=== PATIENT | male | born 1945 | race Caucasian/White ===

== ENCOUNTER → 2019-03-22 | Day surgery (SDC) | payer MEDICARE ==
[2019-03-20 14:58] LABS: BASOPHILS # (AUTO) 0.1 (0.0-0.1); BASOPHILS % 0.8 % (0.0-1.0); EOSINOPHILS # (AUTO) 0.1 (0.0-0.4); EOSINOPHILS % 0.8 % (0.0-6.0); HEMATOCRIT 42.7 % (38.2-49.6); HEMOGLOBIN 14.7 g/dL (14.0-18.0); LYMPHOCYTES % 32.9 % (18.0-39.1); MEAN CORPUSCULAR HEMOGLOBIN 30.5 pg (28-32); MEAN CORPUSCULAR HGB CONC 34.4 g/dL (31-35); MEAN CORPUSCULAR VOLUME 88.6 fL (81-99); MONOCYTES # (AUTO) 0.5 (0.2-0.8); MONOCYTES % 5.1 % (4.4-11.3); NEUTROPHILS # (AUTO) 5.4 (2.1-6.9); NEUTROPHILS % 60.1 % (38.7-80.0); PLATELET COUNT 263 x10e3/uL (140-360); RED BLOOD COUNT 4.82 x10e6/uL (4.3-5.7); RED CELL DISTRIBUTION WIDTH 13.3 % (11.7-14.4)
[~2019-03-22] MED LIST: ASPIR 8181 MG PO; FENTANYL CITRATE/PF 100MCG/2 ML INJ ONE; MIDAZOLAM HCL 2 MG/2 ML VIAL ONE; NEXIUM PO; PROPOFOL IV EMULSION 10 MG/ML 50 ML VIAL ONE; SIMVASTATIN20 MG PO; STOOL SOFTENER1 EAC2 PO; VIT D PO
--- OUTSIDE RECORDS SUMMARY | 2019-03-22 13:10 | XMS REPORT | Clinical Summary ---
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 Active polycarbophil (FIBERCON) Take 625 mg 0 625 mg tablet by mouth daily. Active esomeprazole (NexIUM) 40 TAKE ONE 90 capsule 2 MG capsuleIndications: CAPSULE BY 8 Gastroesophageal reflux MOUTH EVERY disease without DAY BEFORE esophagitis BREAKFAST Active acetaminophen (TYLENOL) Take 650 mg 0 325 MG tablet by mouth every 6 (six) hours as needed for fever. Active ondansetron (ZOFRAN) 4 MG Take 1 tablet 20 tablet 0 tablet (4 mg total) 8 by mouth every 8 (eight) hours as needed for nausea or vomiting. 06/06/2018 Discontinued traMADol (ULTRAM) 50 mg 0 tablet 7 06/06/2018 Discontinued cholecalciferol, vitamin Take by 0 D3, (VITAMIN D3) 5,000 mouth. unit tablet 06/06/2018 Discontinued folic acid (FOLVITE) 400 Take 400 mcg 0 MCG tablet by mouth daily. 06/07/2018 Discontinued aspirin (ECOTRIN) 81 MG Take 81 mg by 0 enteric coated tablet mouth daily. 06/06/2018 Discontinued acetaZOLAMIDE (DIAMOX) 0 500 mg capsule 7 06/06/2018 Discontinued moxifloxacin (VIGAMOX) 0 0.5 % ophthalmic solution 7 06/06/2018 Discontinued ILEVRO 0.3 % 0 drops,suspension 7 06/06/2018 Discontinued prednisoLONE acetate 0 (PRED FORTE) 1 % 7 ophthalmic suspension 06/06/2018 Discontinued esomeprazole (NexIUM) 40 TAKE ONE 90 capsule 2 MG capsuleIndications: CAPSULE BY 7 Gastroesophageal reflux MOUTH EVERY disease without DAY BEFORE esophagitis BREAKFAST 06/06/2018 Discontinued ciprofloxacin HCl INSTILL 1 0 (CILOXAN) 0.3 % DROP INTO 7 ophthalmic solution SURGERY EYE ONLY FOUR TIMES DAILY FOR 10 DAYS START 2 DAYS BEFORE SURGERY 06/06/2018 Discontinued keTOROlac (ACULAR) 0.5 % INSTILL 1 3 ophthalmic solution DROP INTO 7 SURGERY EYE ONLY THREE TIMES DAILY START 2 DAYS BEFORE SURGERY 06/06/2018 Discontinued esomeprazole (NexIUM) 40 TAKE ONE 30 capsule 0 MG capsuleIndications: CAPSULE BY 7 Gastroesophageal reflux MOUTH EVERY disease without DAY BEFORE esophagitis BREAKFAST 07/07/2018 traMADol (ULTRAM) 50 mg Take 1 tablet 21 tablet 0 tablet (50 mg total) 8 by mouth every 6 (six) hours as needed for moderate pain for up to 30 days. 06/19/2018 Discontinued tamsulosin (FLOMAX) 0.4 Take 1 30 capsule 0 mg capsule capsule (0.4 8 mg total) by mouth daily for 30 days. 06/14/2018 Discontinued oxybutynin (DITROPAN) 5 Take 1 tablet 21 tablet 0 MG tablet (5 mg total) 8 by mouth 3 (three) times a day as needed for bladder spasms for up to 30 days. 06/17/2018 ciprofloxacin (CIPRO) 500 Take 1 tablet 20 tablet 0 MG tablet (500 mg 8 total) by mouth 2 (two) times a day for 10 days. 06/19/2018 Discontinued oxybutynin (DITROPAN) 5 Take 1 tablet 21 tablet 0 MG tablet (5 mg total) 8 by mouth 3 (three) times a day as needed for bladder spasms for up to 30 days. 06/24/2018 traMADol (ULTRAM) 50 mg Take 1 tablet 20 tablet 0 tablet (50 mg total) 8 by mouth every 8 (eight) hours as needed for moderate pain for up to 5 days. 06/28/2018 Discontinued hyoscyamine (LEVSIN/SL) Take 1 tablet 20 tablet 0 0.125 mg SL tablet (0.125 mg 8 total) by mouth every 4 (four) hours as needed for cramping (bladder spasm) for up to 30 days. 06/22/2018 levoFLOXacin (LEVAQUIN) Take 1 tablet 3 tablet 0 500 MG tablet (500 mg 8 total) by mouth daily for 3 days. 06/26/2018 phenazopyridine Take 1 tablet 20 tablet 0 (PYRIDIUM) 100 MG tablet (100 mg 8 total) by mouth 3 (three) times a day as needed for bladder spasms (dysuria) for up to 7 days. 07/15/2018 sulfamethoxazole-trimetho Take 1 tablet 28 tablet 0 prim (BACTRIM DS) 800-160 by mouth 8 mg per tablet every 12 (twelve) hours for 14 days. 07/05/2018 ciprofloxacin (CIPRO) 500 Take 1 tablet 1 tablet 0 MG tablet (500 mg 8 total) by mouth once for 1 dose. Active Problems Problem Noted Date Pyelonephritis 06/28/2018 Hydronephrosis 06/07/2018 Kidney stone 06/06/2018 Urinary retention 06/06/2018 Nuclear sclerotic cataract of right eye 07/24/2017 Benign prostatic hyperplasia without lower urinary tract symptoms 04/07/2017 Kidney stones 04/07/2017 Grewal's esophagus 04/07/2017 Pure hypercholesterolemia 04/06/2017 Gastroesophageal reflux disease without esophagitis 04/06/2017 Encounters Care Team Description Date Type Specialty Ignacio Argueta MD Benign prostatic hyperplasia without lower urinary tract symptoms (Primary Dx); Urinary retention; Kidney stone 10/07/2018 Office Visit Urology Ignacio Argueta MD Kidney stone 10/01/2018 Hospital Radiology Encounter Ignacio Argueta MD Kidney stone (Primary Dx); Benign prostatic hyperplasia without lower urinary tract symptoms 07/08/2018 Procedure visit Urology Hortensia Gonzalez MA 07/05/2018 Orders Only Urology Jose Rafael Bowen DO 07/01/2018 Orders Only General Internal Medicine Ivan aRmirez, Jose Rafael Bobby DO Pyelonephritis (Primary Dx); Sepsis, due to unspecified organism (HCC) 06/28/2018 [facility] General Internal Medicine - Encounter 07/01/2018 Hortensia Gonzalez MA 06/28/2018 Telephone Urology Hortensia Gonzalez MA BPH with obstruction/lower urinary tract symptoms (Primary Dx); Urinary retention 06/26/2018 Nurse Only Urology Rios Ortiz MD 06/19/2018 Anesthesia General Surgery Event Ignacio Argueta MD Cysto With Ureteroscopy LASER LITHOTRIPSY-RIGHT 06/19/2018 Surgery General Surgery Ignacio Argueta MD Right ureteral stone; Benign prostatic hyperplasia with lower urinary tract symptoms, symptom details unspecified 06/19/2018 Hospital General Surgery Encounter Ignacio Argueta MD Preoperative testing (Primary Dx) 06/17/2018 Pre-Admit Pre-Admission Testing Testing Appointment Hortensia Gonzalez MA 06/13/2018 Telephone Urology Louise Richards RN 06/07/2018 Patient Quality Outreach Jalil Massey MD Bavare, Arusha Amod, MD Kidney stone (Primary Dx) 06/06/2018 [facility] General Surgery - Encounter 06/07/2018 Kavitha Mercedes MD Gastroesophageal reflux disease without esophagitis 06/06/2018 Refill Internal Medicine Tanisha Jones MA 05/06/2018 Refill Family Medicine after 03/21/2018 Family History Medical History Relation Name Comments Cancer Brother COPD Father Cancer Mother Cancer Sister Relation Name Status Comments Brother Father Mother Sister Social History Date Tobacco Use Types Packs/Day Years Used Quit: 1972 Former Smoker Cigarettes 0.5 6 Smokeless Tobacco: Snuff Current User Comments: pt quit 47 years ago Alcohol Use Drinks/Week oz/Week Comments Yes seldom Sex Assigned at Date Recorded Not on file Industry Job Start Date Occupation Not on file Not on file Not on file Travel End Travel History Travel Start No recent travel history available. Last Filed Vital Signs Time Taken Vital Sign Reading 10/07/2018 9:32 AM [employer] Blood Pressure 150/80 10/07/2018 9:32 AM [employer] Pulse 65 10/07/2018 9:32 AM [employer] Temperature 36.3 C (97.4 F) 07/01/2018 7:06 AM CDT Respiratory Rate 16 07/01/2018 7:06 AM CDT Oxygen Saturation 95% - Inhaled Oxygen - Concentration 10/07/2018 9:32 AM [employer] Weight 80.3 kg (177 lb) 10/07/2018 9:32 AM [employer] Height 167.6 cm (5' 6") 10/07/2018 9:32 AM [employer] Body Mass Index 28.57 Plan of Treatment Care Team Description Date [place] [address] [place] [address] [phone] 04/08/2019 Office Visit Urology Health Maintenance Due Date Last Done Comments COLONOSCOPY SCREENING 1996 SHINGLES VACCINES (#1) 1996 65+ PNEUMOCOCCAL VACCINE 2011 (1 of 2 - PCV13) INFLUENZA VACCINE 04/24/2019 Implants Device Identifier Shelf Expiration Date Model / Serial / Lot Implanted Type Area Manufactur er 11/21/2021 [id number] 210 / [id number] / [id number] Lens Ascrysof Aspheric Uv Absorbing Intraocula Left: Eye YASMINE 21.0.Od 13mmx6.0mm - [id number] - r [employer]ens [employer] [id number] Implant [employer] Implanted: Qty: 1 on 07/10/2017 by Jono Tam MD 11/21/2021 [id number] 215 / [id number] / [id number] Lens Ascrysof Aspheric Uv Absorbing Intraocula Right: Eye YASMINE 21.5..Od 13mmx6.0mm - [id number] r [employer]ens [employer] - [id number] Implant [employer] Implanted: Qty: 1 on 07/24/2017 by Jono Tam MD 05/03/2021 [id number] / / [id number] Stent Set Ureteral [facility] Surgical Right: Ureter, COOK 6fr X 26cm - [id number] Stents [place] [employer] Implanted: Qty: 1 on 06/19/2018 by Ignacio Argueta MD Procedures Comments Procedure Name Priority Date/Time Associated Diagnosis US RENAL Routine 10/01/2018 Kidney stone 12:25 PM [employer] CYSTOSCOPY Routine 07/08/2018 Benign prostatic 11:30 AM CDT hyperplasia without lower urinary tract symptoms Kidney stone ESTIMATED GFR Routine 06/30/2018 6:40 AM CDT HC COMPLETE BLD COUNT Routine 06/30/2018 W/AUTO DIFF 6:40 AM CDT BASIC METABOLIC PANEL Routine 06/30/2018 6:40 AM CDT ESTIMATED GFR Routine 06/29/2018 5:55 AM CDT BASIC METABOLIC PANEL Routine 06/29/2018 5:55 AM CDT PROTHROMBIN TIME WITH INR Routine 06/29/2018 5:55 AM CDT HC COMPLETE BLD COUNT Routine 06/29/2018 W/AUTO DIFF 5:55 AM CDT BLOOD CULTURE, AEROBIC & Routine 06/29/2018 ANAEROBIC 12:39 AM CDT BLOOD CULTURE, AEROBIC & Routine 06/29/2018 ANAEROBIC 12:32 AM CDT LACTIC ACID LEVEL, SEPSIS Timed 06/28/2018 - NOW AND REPEAT 2X EVERY 9:03 PM CDT 3 HOURS LACTIC ACID LEVEL, SEPSIS Timed 06/28/2018 - NOW AND REPEAT 2X EVERY 5:16 PM CDT [address] RENAL STONE PROTOCOL STAT 06/28/2018 3:15 PM CDT CONSULT TO SEPSIS Routine 06/28/2018 Pyelonephritis RESPONSE TEAM 2:38 PM CDT Sepsis, due to unspecified organism (HCC) [place] CRITICAL CARE, E/M Routine 06/28/2018 30-74 MINUTES 1:12 PM CDT URINALYSIS SCREEN AND STAT 06/28/2018 MICROSCOPY, WITH REFLEX 1:05 PM CDT TO CULTURE GRAM STAIN STAT 06/28/2018 1:05 PM CDT URINE CULTURE STAT 06/28/2018 1:05 PM CDT ESTIMATED GFR STAT 06/28/2018 12:55 PM CDT LACTIC ACID LEVEL, SEPSIS STAT 06/28/2018 - NOW AND REPEAT 2X EVERY 12:55 PM CDT 3 HOURS LIPASE LEVEL STAT 06/28/2018 12:55 PM CDT COMPREHENSIVE METABOLIC STAT 06/28/2018 PANEL 12:55 PM CDT HC COMPLETE BLD COUNT STAT 06/28/2018 W/AUTO DIFF 12:55 PM CDT BLOOD CULTURE, AEROBIC & Routine 06/28/2018 ANAEROBIC 12:55 PM CDT BLOOD CULTURE, AEROBIC & Routine 06/28/2018 ANAEROBIC 12:50 PM CDT BLADDER SCAN Routine 06/26/2018 BPH with 10:18 AM CDT obstruction/lower urinary tract symptoms Urinary retention FL PYELOGRAM RETROGRADE Routine 06/19/2018 2:37 PM CDT CALCULI ANALYSIS WITH Routine 06/19/2018 PHOTO 1:59 PM CDT ANESTHESIA INTUBATION Routine 06/19/2018 12:54 PM CDT Procedure Note - Lexy Cannon, TECHNICAL SERVICES COORDINATOR - 06/19/2018 12:54 PM CDT Airway Date/Time: 06/19/2018 12:43 PM Performed by: LEXY CANNON Authorized by: LEXY CANNON Location: OR Difficult Airway: No Anesthesio logist: RIOS ORTIZ Resident/C RNA/AA: LEXY CANNON Preoxygena licha with 100% O2: Yes C-spine Precaution s Maintained Throughout : Yes Mask Ventilatio n: Easy mask Final Airway Type: Supraglott ic airway Final LMA: Unique LMA Size: 5 Number of Attempts at Approach: 1 SURGICAL PATHOLOGY Routine 06/19/2018 REQUEST 9:32 AM CDT ESTIMATED GFR Routine 06/17/2018 2:44 PM CDT PROTHROMBIN TIME WITH INR Routine 06/17/2018 Preoperative testing 2:44 PM CDT BASIC METABOLIC PANEL Routine 06/17/2018 Preoperative testing 2:44 PM CDT HC COMPLETE BLD COUNT Routine 06/17/2018 Preoperative testing W/AUTO DIFF 2:44 PM CDT ECG PRE/POST OP Routine 06/17/2018 Preoperative testing 2:40 PM CDT ESTIMATED GFR Routine 06/07/2018 6:55 AM CDT HC COMPLETE BLD COUNT Routine 06/07/2018 W/AUTO DIFF 6:55 AM CDT HEMOGLOBIN A1C Routine 06/07/2018 6:55 AM CDT LIPID PANEL Routine 06/07/2018 6:55 AM CDT BASIC METABOLIC PANEL Routine 06/07/2018 6:[address] CHEST WO CONTRAST STAT 06/06/2018 3:[address] RENAL STONE PROTOCOL STAT 06/06/2018 7:50 AM CDT URINALYSIS SCREEN AND Routine 06/06/2018 MICROSCOPY, WITH REFLEX 7:07 AM CDT TO CULTURE GRAM STAIN Routine 06/06/2018 7:07 AM CDT URINE CULTURE Routine 06/06/2018 7:07 AM CDT ESTIMATED GFR STAT 06/06/2018 7:01 AM CDT COMPREHENSIVE METABOLIC STAT 06/06/2018 PANEL 7:01 AM CDT HC COMPLETE BLD COUNT STAT 06/06/2018 W/AUTO DIFF 7:01 AM CDT after 03/21/2018 Results * US Renal (10/01/2018 12:25 PM [employer]) Specimen Narrative Performed At [facility] CLIN[facility]:N20.0 Calculus of kidney, HYDRONEPHROSIS COMPARISON:None. TECHNIQUE:Ultrasound evaluation of the kidneys and bladder. IMPRESSION: 1.The right kidney measures 11.5 x 4.9 x 6.9 cm.The left kidney measures 12.8 x 6.2 x 6.8 cm.Normal renal cortical echogenicity. 2.No hydronephrosis or solid mass lesions. A left renal cyst with a single thin septation is 3.6 x 2.9 x 2.8 cm. A small left renal cyst is 1.4 x 1.4 x 2.1 cm. A few bilateral renal calyceal stones are seen. There is a calcification right kidney which appears to be cortical. This appears to be due to scarring. 3.Bladder is unremarkable. There is prostate enlargement. [facility]-[id number] Procedure Note Interface, Radiology Results Incoming - 10/01/2018 1:53 PM [employer] EXAMINATION: US RENAL CLINICAL HISTORY: N20.0 Calculus of kidney, HYDRONEPHROSIS COMPARISON: None. TECHNIQUE: Ultrasound evaluation of the kidneys and bladder. IMPRESSION: 1. The right kidney measures 11.5 x 4.9 x 6.9 cm. The left kidney measures 12.8 x 6.2 x 6.8 cm. Normal renal cortical echogenicity. 2. No hydronephrosis or solid mass lesions. A left renal cyst with a single thin septation is 3.6 x 2.9 x 2.8 cm. A small left renal cyst is 1.4 x 1.4 x 2.1 cm. A few bilateral renal calyceal stones are seen. There is a calcification right kidney which appears to be cortical. This appears to be due to scarring. 3. Bladder is unremarkable. There is prostate enlargement. [facility]-[id number] Performing Organization Address City/State/Zipcode Phone Number [facility] [address] [place] [address] * Cystoscopy (07/08/2018 11:30 AM CDT) Narrative Performed At Ignacio Argueta MD 07/08/20182:49 PM Cystoscopy Date/Time: 07/08/2018 2:48 PM Performed by: IGNACIO ARGUETA Authorized by: IGNACIO ARGUETA Consent: Verbal consent obtained. Written consent obtained. Risks and benefits: risks, benefits and alternatives were discussed Consent given by: patient Patient understanding: patient states understanding of the procedure being performed Patient consent: the patient's understanding of the procedure matches consent given Procedure consent: procedure consent matches procedure scheduled Relevant documents: relevant documents present and verified Test results: test results available and properly labeled Required items: required blood products, implants, devices, and special equipment available Patient identity confirmed: provided demographic data and verbally with patient Time out: Immediately prior to procedure a "time out" was called to verify the correct patient, procedure, equipment, technical support professional and site/side marked as required. Preparation: Patient was prepped and draped in the usual sterile fashion. Local anesthesia used: yes Anesthesia: Local anesthesia used: yes Local Anesthetic: lidocaine/prilocaine emulsion Sedation: Patient sedated: no Patient tolerance: Patient tolerated the procedure well with no immediate complications Comments: Flexible cystoscope was advanced into the bladder.The ureteral stent was identified, grasped and extracted intact.Patient tolerated procedure well. * Estimated GFR (06/30/2018 6:40 AM CDT) Only the most recent of 6 results within the time period is included. Pathologist [facility] Estimated GFR 75 mL/min/1.73 m2 [facility] Comment: OF PATHOLOGY CatergoryUnitsInte AND GENOMIC rpretation MEDICINE G1 >=90 Normal or high G2 60-89Mildly decreased [id number] Mildly to moderately decreased [id number] Moderately to severely decreased G4 15-29Severely decreased G5 <15Kidney failure The eGFR was calculated using the Chronic Kidney Disease Epidemiology Collaboration (CKD-EPI) equation. Interpretation is based on recommendations of the National Kidney Foundation-Kidney Disease Outcomes Quality Initiative (NKF-KDOQI) published in 2014. Specimen Plasma specimen Performing Organization Address City/State/Zipcode Phone Number [facility] [address] [place] [address] PATHOLOGY AND GENOMIC MEDICINE * CBC with platelet and differential (06/30/2018 6:40 AM CDT) Only the most recent of 6 results within the time period is included. WBC 12.0 (H) 4.2 - 11.0 k/uL [facility] OF PATHOLOGY AND GENOMIC MEDICINE RBC 3.74 (L) 4.04 - 5.86 m/uL [facility] OF PATHOLOGY AND GENOMIC MEDICINE HGB 11.0 (L) 13.0 - 17.3 g/dL [facility] OF PATHOLOGY AND GENOMIC MEDICINE HCT 35.3 34.0 - 45.0 % [facility] OF PATHOLOGY AND GENOMIC MEDICINE MCV 94.4 80.0 - 98.0 fL [facility] OF PATHOLOGY AND GENOMIC MEDICINE MCH 29.4 27.0 - 34.0 pg [facility] OF PATHOLOGY AND GENOMIC MEDICINE MCHC 31.2 (L) 31.5 - 36.5 g/dL [facility] PATHOLOGY AND GENOMIC MEDICINE RDW - SD 45.6 37.0 - 51.0 fL [facility] PATHOLOGY AND GENOMIC MEDICINE MPV 10.4 7.4 - 10.4 fL [facility] OF PATHOLOGY AND GENOMIC MEDICINE Platelet count 261 150 - 400 k/uL [facility] OF PATHOLOGY AND GENOMIC MEDICINE Nucleated RBC 0.00 /100 WBC [facility] OF PATHOLOGY AND GENOMIC MEDICINE Neutrophils 78.8 (H) 36.0 - 66.0 % [facility] OF PATHOLOGY AND GENOMIC MEDICINE Lymphocytes 11.3 (L) 24.0 - 44.0 % [facility] OF PATHOLOGY AND GENOMIC MEDICINE Monocytes 7.7 (H) 0.0 - 6.0 % [facility] OF PATHOLOGY AND GENOMIC MEDICINE Eosinophils 0.7 0.0 - 6.0 % [facility] PATHOLOGY AND GENOMIC MEDICINE Basophils 0.3 0.0 - 1.2 % [facility] PATHOLOGY AND GENOMIC MEDICINE Immature 1.2 (H) 0.0 - 1.0 % [facility] granulocytes OF PATHOLOGY AND GENOMIC MEDICINE Specimen Blood Performing Organization Address City/State/Zipcode Phone Number [facility] [address] [place] [address] PATHOLOGY AND GENOMIC MEDICINE * Basic metabolic panel (06/30/2018 6:40 AM CDT) Only the most recent of 4 results within the time period is included. Sodium 138 135 - 150 mEq/L [facility] OF PATHOLOGY AND GENOMIC MEDICINE Potassium 4.1 3.5 - 5.0 mEq/L [facility] OF PATHOLOGY AND GENOMIC MEDICINE Chloride 102 98 - 112 mEq/L [facility] OF PATHOLOGY AND GENOMIC MEDICINE CO2 26 24 - 31 mmol/L [facility] OF PATHOLOGY AND GENOMIC MEDICINE Anion gap 10@ANIO 7 - 15 mEq/L [facility] OF PATHOLOGY AND GENOMIC MEDICINE BUN 20 (H) 7 - 18 mg/dL [facility] OF PATHOLOGY AND GENOMIC MEDICINE Creatinine 1.00 0.70 - 1.20 mg/dL [facility] OF PATHOLOGY AND GENOMIC MEDICINE Glucose 113 (H) 65 - 100 mg/dL [facility] OF PATHOLOGY AND GENOMIC MEDICINE Calcium 9.0 8.8 - 10.2 mg/dL [facility] OF PATHOLOGY AND GENOMIC MEDICINE Specimen Plasma specimen Performing Organization Address City/State/Zipcode Phone Number [facility] OF [address] [place] [address] PATHOLOGY AND GENOMIC MEDICINE * Prothrombin time with INR (06/29/2018 5:55 AM CDT) Only the most recent of 2 results within the time period is included. Prothrombin 14.9 12.0 - 15.0 sec [facility] time OF PATHOLOGY AND GENOMIC MEDICINE INR 1.15 (H) 0.92 - 1.12 [facility] Comment: OF PATHOLOGY For patients on anticoagulant AND GENOMIC therapy, reference ranges MEDICINE below: Indication: INR Value Treatment of Venous Thrombosis, 2.0-3.0 pulmonary emboli, or prophylaxis of a venous thrombosis, or systemic emboli. High dose, high risk patients 3.0-4.5 with mechanical valves. NOTE:INR values over 3.0 are sometimes associated with gastrointestinal hemorrhage, especially values over 4.0. Specimen Blood Performing Organization Address City/[facility]/[place]ust[place] Phone Number [facility] OF [address] [place] [address] PATHOLOGY AND GENOMIC MEDICINE * Blood culture, aerobic & anaerobic (06/29/2018 12:39 AM CDT) Only the most recent of 4 results within the time period is included. Blood culture No growth after 5 days of [facility] isolate incubation. OF PATHOLOGY Comment: AND GENOMIC Specimen Information MEDICINE Specimen Source: Blood Specimen Site: RIGHT HAND Specimen Blood Performing Organization Address City/State/Zipcode Phone Number [facility] DE[facility] OF [address] [place] [address] PATHOLOGY AND GENOMIC MEDICINE * Lactic acid level, SEPSIS - Now and repeat 2x every 3 hours (06/28/2018 9:03 PM CDT) Only the most recent of 3 results within the time period is included. Lactic acid 2.9 (H) 0.5 - 2.2 mmol/L [facility] OF PATHOLOGY AND GENOMIC MEDICINE Specimen Blood Performing Organization Address City/State/Zipcode Phone Number [facility] OF [address] [place] [address] PATHOLOGY AND GENOMIC MEDICINE * CT Renal Stone Protocol (06/28/2018 3:15 PM CDT) Only the most recent of 2 results within the time period is included. Specimen Narrative Performed At EXAMINATION:CT RENAL STONE PROTOCOL RADIANT CLINICAL HISTORY:Flank painrecurrent stone disease suspected COMPARISON:06/06/2018 TECHNIQUE:CT of the abdomen and pelvis without intravenous contrast. Absence of contrast decreases sensitivity for detection of focal lesions and vascular pathology. All CT scan performed using radiation dose reduction techniques. Technical factors are evaluated and adjusted to ensure appropriate moderation of exposure. Automated dose management technology is applied to adjust the radiation dose to minimize expose whileachieving a diagnostic quality image. FINDINGS: LUNG BASES: The lung bases are clear. HEPATOBILIARY: An approximately 8 mm subcapsular cyst is seen within the dome of the liver.Limited evaluation of the liver is otherwise unremarkable. No intrahepatic biliary dilatation is seen. GALLBLADDER: No gallstones are seen. No wall thickening or pericholecystic fluid collection is identified. SPLEEN: Limited nonenhanced evaluation of the spleen is unremarkable. PANCREAS: Mild infiltration of the pancreas is noted. Limited nonenhanced evaluation of the pancreas is otherwise unremarkable.No ductal dilation. ADRENALS: The adrenal glands are unremarkable. KIDNEYS: Status post right double-J ureter stent placement is seen and appears to be in satisfactory placement. There has been resolution of right hydronephrosis. The right proximal ureteral calculus is not seen, suggesting of interval removal. Decreased in size and fragmentation are seen of the right renal calculi, suggestive of status post lithotripsy. Approximately 4 mm nonobstructing calyceal calculus is again seen within the lower pole of the left kidney.No left hydronephrosis is present. Left renal cysts are again noted. Limited nonenhanced evaluation of the kidneys is otherwise unremarkable. PERITONEUM/RETROPERITONEUM: No mesenteric or retroperitoneal pathologic adenopathy is seen. No ascites is seen. GI TRACT:The small bowel is normal in caliber. Scattered diverticula are again seen of the descending colon and sigmoid colon. The colon is otherwise unremarkable. No wall thickening is identified. There is no evidence of inflammatory process. The appendix is not seen. The stomach is unremarkable.. BONES: Mild multilevel degenerative changes are noted. VASCULATURE: Scattered atherosclerotic disease is seen of the abdominal aorta. PELVIS: BLADDER: The urinary bladder is unremarkable. GENITALIA: Limited evaluation of the prostate gland is unremarkable. FLUID: None. IMPRESSION: Findings suggestive of satisfactory status post right double-J ureteral stent placement with interval removal of the right ureteral calculus and lithotripsy. Additional findings as prior. [id number] Procedure Note Hm Interface, Radiology Results Incoming - 06/28/2018 3:32 PM CDT EXAMINATION: CT RENAL STONE PROTOCOL CLINICAL HISTORY: Flank pain recurrent stone disease suspected COMPARISON: 06/06/2018 TECHNIQUE: CT of the abdomen and pelvis without intravenous contrast. Absence of contrast decreases sensitivity for detection of focal lesions and vascular pathology. All CT scan performed using radiation dose reduction techniques. Technical factors are evaluated and adjusted to ensure appropriate moderation of exposure. Automated dose management technology is applied to adjust the radiation dose to minimize expose while achieving a diagnostic quality image. FINDINGS: LUNG BASES: The lung bases are clear. HEPATOBILIARY: An approximately 8 mm subcapsular cyst is seen within the dome of the liver. Limited evaluation of the liver is otherwise unremarkable. No intrahepatic biliary dilatation is seen. GALLBLADDER: No gallstones are seen. No wall thickening or pericholecystic fluid collection is identified. SPLEEN: Limited nonenhanced evaluation of the spleen is unremarkable. PANCREAS: Mild infiltration of the pancreas is noted. Limited nonenhanced evaluation of the pancreas is otherwise unremarkable. No ductal dilation. ADRENALS: The adrenal glands are unremarkable. KIDNEYS: Status post right double-J ureter stent placement is seen and appears to be in satisfactory placement. There has been resolution of right hydronephrosis. The right proximal ureteral calculus is not seen, suggesting of interval removal. Decreased in size and fragmentation are seen of the right renal calculi, suggestive of status post lithotripsy. Approximately 4 mm nonobstructing calyceal calculus is again seen within the lower pole of the left kidney. No left hydronephrosis is present. Left renal cysts are again noted. Limited nonenhanced evaluation of the kidneys is otherwise unremarkable. PERITONEUM/RETROPERITONEUM: No mesenteric or retroperitoneal pathologic adenopathy is seen. No ascites is seen. GI TRACT: The small bowel is normal in caliber. Scattered diverticula are again seen of the descending colon and sigmoid colon. The colon is otherwise unremarkable. No wall thickening is identified. There is no evidence of inflammatory process. The appendix is not seen. The stomach is unremarkable.. BONES: Mild multilevel degenerative changes are noted. VASCULATURE: Scattered atherosclerotic disease is seen of the abdominal aorta. PELVIS: BLADDER: The urinary bladder is unremarkable. GENITALIA: Limited evaluation of the prostate gland is unremarkable. FLUID: None. IMPRESSION: Findings suggestive of satisfactory status post right double-J ureteral stent placement with interval removal of the right ureteral calculus and lithotripsy. Additional findings as prior. [id number] Performing Organization Address City/State/Zipcode Phone Number [facility] [address] [place] [address] * Consult to Sepsis Response Team (06/28/2018 2:38 PM CDT) Narrative Performed At [facility] Mcneil 06/28/20182:41 PM Lab reporting lactic acid level 3.0 Source: UTI IVF Bolus: NS 2 liters IVF Maintenance: NA Blood Cultures: X2, results pending UA/UCX: UA positive Sputum CX: NA Lactic Acid: 3.0, will trend Anti-infective first dose:Marion Beck Collaborated with Dr. Ramirez and he agrees with assessment and plan. Sepsis Clinical Assessment Performed by: SANA KIRKPATRICK Authorized by: SANA KIRKPATRICK Sepsis Clinical Assessment General Assessment Information Current sepsis score:3 On comfort care?: No If score does not worsen, snooze alerts until:06/29/2018 02:30 CDT SIRS Criteria Temperature > 38.3 C (101 F) due to acute condition WBC > 12 K/mcL due to acute condition Organ Dysfunction Lactate > 2.0 mmol/L due to acute condition Sepsis Assessment Clinical suspicion of infection? Yes Time of suspicion of infection:06/28/2018 2:38 PM Clinical suspicion of sepsis?: Yes Sepsis staging:Sepsis Sepsis protocol started?Yes Where did the protocol start?:ED Started Suspected Type/Source of Infection Suspected Type of Infection: Bacterial Suspected Source of Infection: UTI Focus Exam Sepsis focus exam performed at 06/28/2018 2:40 PM Cardiopulmonary Exam Heart: Regular rate & rhythm Left Lung: Clear Right Lung: Clear Capillary Refill Capillary refill rate: Brisk, < 3 s Peripheral Pulses Left dorsalis pedis:Normal Right dorsalis pedis:Normal Left posterial tibial: Normal Right posterial tibial:Normal Left radial:Normal Right radial:Normal Skin Exam Skin exam: Skin color normal Sepsis Related Vitals Heart rate: 87 Temperature: (!) 101.3 F Respiratory rate: 20 Blood pressure: 107/58 Altered mental status: WBC (k/uL) Date Value 06/28/2018 23.2 (H)06/17/2018 7.9 Weight-Based Fluid Bolus Calculation The recommended weight-based bolus volume: 2,313 mL (dosing weight) Please refer to the MAR for actual med/fluid administrations. * CRITICAL CARE (06/28/2018 1:12 PM CDT) Narrative Performed At Ivan Ramirez DO 06/30/20188:04 AM Critical Care Performed by: IVAN RAMIREZ Authorized by: IVAN RAMIREZ Critical care provider statement: Critical care time (minutes):40 Critical care time was exclusive of:Teaching time and separately billable procedures and treating other patients Critical care was necessary to treat or prevent imminent or life-threatening deterioration of the following conditions:Sepsis Critical care was time spent personally by me on the following activities:Blood draw for specimens, development of treatment plan with patient or surrogate, discussions with consultants, discussions with primary provider, evaluation of patient's response to treatment, examination of patient, interpretation of cardiac output measurements, obtaining history from patient or surrogate, vascular access procedures, review of old charts, re-evaluation of patient's condition, pulse oximetry, ordering and review of radiographic studies, ordering and review of laboratory studies and ordering and performing treatments and interventions Chao 'yes' if you are taking over critical care for this patient from another provider.: no * Urinalysis screen and microscopy, with reflex to culture (06/28/2018 1:05 PM CDT) Only the most recent of 2 results within the time period is included. Specimen site Clean catch [facility] OF [facility]OLOGY AND GENOMIC MEDICINE Color, UA Kandice [facility] OF PATHOLOGY AND GENOMIC MEDICINE Appearance, UA Cloudy [facility] OF PATHOLOGY AND GENOMIC MEDICINE Specific 1.019 1.001 - 1.035 [facility] gravity, OF PATHOLOGY AND GENOMIC MEDICINE pH, UA 5.0 5.0 - 8.5 [facility] OF PATHOLOGY AND GENOMIC MEDICINE Protein, UA 3+ (A) Negative [facility] OF PATHOLOGY AND GENOMIC MEDICINE Glucose, UA Negative Negative [facility] OF PATHOLOGY AND GENOMIC MEDICINE Ketones, UA Negative Negative [facility] OF PATHOLOGY AND GENOMIC MEDICINE Bilirubin, UA Negative Negative [facility] OF PATHOLOGY AND GENOMIC MEDICINE Blood, UA Large (A) Negative [facility] OF PATHOLOGY AND GENOMIC MEDICINE Nitrite, UA Negative Negative [facility] OF PATHOLOGY AND GENOMIC MEDICINE Urobilinogen, Negative <2.0 [facility] UA OF PATHOLOGY AND GENOMIC MEDICINE Leukocyte Large (A) Negative [facility] esterase, UA OF PATHOLOGY AND GENOMIC MEDICINE WBC, UA >200 (H) 0 - 1 /HPF [facility] OF PATHOLOGY AND GENOMIC MEDICINE RBC, UA 143 (H) 0 - 5 /HPF [facility] OF PATHOLOGY AND GENOMIC MEDICINE Bacteria, UA None seen None seen [facility] OF PATHOLOGY AND GENOMIC MEDICINE Yeast, UA None seen [facility] OF PATHOLOGY AND GENOMIC MEDICINE Yeast with None seen [facility] pseudohyphae, OF PATHOLOGY UA AND GENOMIC MEDICINE Specimen Urine Performing Organization Address City/State/Zipcode Phone Number [facility] OF [address] [place] [address] PATHOLOGY AND GENOMIC MEDICINE * Gram stain (06/28/2018 1:05 PM CDT) Only the most recent of 2 results within the time period is included. Gram stain Moderate WBC's [facility] result Moderate Gram negative rods OF PATHOLOGY Comment: AND GENOMIC Specimen Information MEDICINE Specimen Source: Urine Specimen Site: Clean catch Specimen Urine Performing Organization Address City/State/Zipcode Phone Number [facility] OF [address] [place] [address] PATHOLOGY AND GENOMIC MEDICINE * Urine culture (06/28/2018 1:05 PM CDT) Only the most recent of 2 results within the time period is included. Urine culture Escherichia coli [facility] isolate >10-5 cfu/ml OF PATHOLOGY (A) AND GENOMIC Comment: MEDICINE Specimen Information Specimen Source: Urine Specimen Site: Clean catch Specimen Urine Antibiotic Method Susceptibility Organism Ampicillin ARTURO >16 mcg/mL: Resistant Escherichia coli Amoxicillin/Clavulanate ARTURO 16/8 mcg/mL: Resistant Escherichia coli Amikacin ARTURO 8 mcg/mL: Susceptible Escherichia coli Aztreonam ARTURO <=1 mcg/mL: Susceptible Escherichia coli Ceftazidime ARTURO <=0.5 mcg/mL: Susceptible Escherichia coli Ciprofloxacin ARTURO >2 mcg/mL: Resistant Escherichia coli Ceftriaxone ARTURO <=0.5 mcg/mL: Susceptible Escherichia coli Cefuroxime Sodium ARUTRO 16 mcg/mL: Resistant Escherichia coli Cefazolin ARTURO 4 mcg/mL: Resistant Escherichia coli Cefepime ARTURO 1 mcg/mL: Susceptible Escherichia coli Nitrofurantoin ARTURO <=16 mcg/mL: Susceptible Escherichia coli Cefoxitin ARTURO <=4 mcg/mL: Susceptible Escherichia coli Gentamicin ARTURO 2 mcg/mL: Susceptible Escherichia coli Imipenem ARTURO <=0.25 mcg/mL: Susceptible Escherichia coli Levofloxacin ARTURO >4 mcg/mL: Resistant Escherichia coli Meropenem ARTURO <=0.125 mcg/mL: Susceptible Escherichia coli Tobramycin ARTURO >8 mcg/mL: Resistant Escherichia coli Ampicillin/Sulbactam ARTURO >16/8 mcg/mL: Resistant Escherichia coli Trimethoprim/Sulfamethoxazole ARTURO <=0.5/9.5 mcg/mL: Susceptible Escherichia coli Tetracycline ARTURO >8 mcg/mL: Resistant Escherichia coli Piperacillin/Tazobactam ARTURO 32/4 mcg/mL: Resistant Escherichia coli Ertapenem ARTURO <=0.125 mcg/mL: Susceptible Escherichia coli Tigecycline ARTURO 1 mcg/mL: Susceptible Escherichia coli Performing Organization Address City/[facility]/Zipcode Phone Number [facility] [address] [place] [address] PATHOLOGY AND GENOMIC MEDICINE * Lipase level (06/28/2018 12:55 PM CDT) Lipase 11 (L) 13 - 60 U/L [facility] OF PATHOLOGY AND GENOMIC MEDICINE Specimen Plasma specimen Performing Organization Address City/[facility]/Zipcode Phone Number [place] [phone] [place] [address] PATHOLOGY AND GENOMIC MEDICINE * Comprehensive metabolic panel (06/28/2018 12:55 PM CDT) Only the most recent of 2 results within the time period is included. Sodium 137 135 - 150 mEq/L [facility] OF PATHOLOGY AND GENOMIC MEDICINE Potassium 4.2 3.5 - 5.0 mEq/L [facility] OF PATHOLOGY AND GENOMIC MEDICINE Chloride 98 98 - 112 mEq/L [facility] OF PATHOLOGY AND GENOMIC MEDICINE CO2 22 (L) 24 - 31 mmol/L [facility] OF PATHOLOGY AND GENOMIC MEDICINE Anion gap 17@ANIO (H) 7 - 15 mEq/L [facility] OF PATHOLOGY AND GENOMIC MEDICINE BUN 19 (H) 7 - 18 mg/dL [facility] OF PATHOLOGY AND GENOMIC MEDICINE Creatinine 1.10 0.70 - 1.20 mg/dL [facility] OF PATHOLOGY AND GENOMIC MEDICINE Glucose 136 (H) 65 - 100 mg/dL [facility] OF PATHOLOGY AND GENOMIC MEDICINE Calcium 9.8 8.8 - 10.2 mg/dL [facility] OF PATHOLOGY AND GENOMIC MEDICINE Protein 7.5 6.3 - 8.3 g/dL [facility] OF PATHOLOGY AND GENOMIC MEDICINE Albumin 3.3 (L) 3.5 - 5.0 g/dL [facility] OF PATHOLOGY AND GENOMIC MEDICINE A/G ratio 0.8 0.7 - 3.8 [facility] OF PATHOLOGY AND GENOMIC MEDICINE Alkaline 88 0 - 129 U/L [facility] phosphatase OF PATHOLOGY AND GENOMIC MEDICINE AST 23 10 - 50 U/L [facility] OF PATHOLOGY AND GENOMIC MEDICINE ALT 27 5 - 50 U/L [facility] OF PATHOLOGY AND GENOMIC MEDICINE Total bilirubin 1.5 (H) 0.2 - 1.2 mg/dL [facility] OF PATHOLOGY AND GENOMIC MEDICINE Specimen Plasma specimen Performing Organization Address City/State/Zipcode Phone Number [place] [address] [place] [address] PATHOLOGY AND GENOMIC MEDICINE * Bladder scan (06/26/2018 10:18 AM CDT) Impressions Performed At 7 ml * FL Pyelogram Retrograde (06/19/2018 2:37 PM CDT) Specimen Narrative Performed At IMPRESSION:C-arm Fluoroscopy under 1 hour was provided in the OR for the [facility] referring physician.A radiologist was not present during the procedure. Refer to the Operative report issued by the performing provider for procedure details. Procedure Note Interface, Radiology Results Incoming - 06/19/2018 3:05 PM CDT IMPRESSION: C-arm Fluoroscopy under 1 hour was provided in the OR for the referring physician. A radiologist was not present during the procedure. Refer to the Operative report issued by the performing provider for procedure details. Performing Organization Address City/State/Zipcode Phone Number [facility] [address] [place] [address] * Calculi analysis with photo (06/19/2018 1:59 PM CDT) Calculi mass 28 mg [facility] Calculi number 2 [facility] Calculi size 1 to 4 mm [facility] Calculi See Note [facility] descrption Comment: Specimen consists of two, small, brown, irregular calculi fragments. Calculi See Note [facility] composition Comment: Calculi composed primarily of calcium oxalate monohydrate. INTERPRETIVE INFORMATION: Calculi (Stone) analysis Calculi are the products of physiological processes that yield crystalline compounds in a matrix of biological compounds and blood.Matrix components are not reported.The clinically significant crystalline components identified in calculi specimens are reported.Gross description may not be consistent with composition determined by FTIR analysis. EER calculi See Note [facility] (stone) Comment: analysis and Access [facility] Enh[facility] Report photo using either link below: -Direct access: [email or web address] -Enter Username, Password: [email or web address] Username: [email or web address] Password: [email or web address] Performed by [facility], [address] [place] [id number] [email or web address], Aleksey Rivera MD - Lab. Director Specimen Serum Narrative Performed At [id number] [facility] RIGHT URETERAL STONE Performing Organization Address [facility]/Zipcode Phone Number [facility] [address] [place] [phone] * Surgical pathology request (06/19/2018 9:32 AM CDT) [facility] OF PATHOLOGY AND GENOMIC MEDICINE Surgical See link below for PDF Lab [facility] pathology Report OF PATHOLOGY report AND GENOMIC MEDICINE Result status This is Final Report for [facility] [id number] OF PATHOLOGY AND GENOMIC MEDICINE Specimen Performing Organization Address City/State/Zipcode Phone Number [facility] OF [address] [place], [place] [address] [address] PATHOLOGY AND GENOMIC MEDICINE * ECG Pre/Post Op (06/17/2018 2:40 PM CDT) Ventricular 56 [facility] rate Atrial rate 56 [facility] VT interval 170 [facility] QRSD interval 88 [facility] QT interval 424 [facility] QTC interval 409 [facility] P axis 1 28 [facility] QRS axis 1 -37 [facility] T wave axis 34 [facility] EKG impression Sinus bradycardia-Left axis [facility] M[facility] deviation-Abnormal ECG-No previous ECGs available- Specimen Performing Organization Address City/State/Zipcode Phone Number [facility]USE [address] [place] [address] * Hemoglobin A1c (06/07/2018 6:55 AM CDT) Hemoglobin A1C 5.6 4.0 - 6.0 % [facility] Comment: OF PATHOLOGY AND GENOMIC MEDICINE Less than 6% - Goal of therapy for Type II Diabetes Less than 7%-Goal of therapy for Type I Diabetes Less than 8%-Accepta ble control for Type I or Type II Diabetes Greater than 8%-Unacceptabl e control; action indicated. ([id number]) Specimen Blood Performing Organization Address City/State/Zipcode Phone Number [facility] OF [address] [place] [address] PATHOLOGY AND GENOMIC MEDICINE * Lipid panel (06/07/2018 6:55 AM CDT) Cholesterol 177 0 - 199 mg/dL [facility] OF PATHOLOGY AND GENOMIC MEDICINE Triglycerides 166 (H) 0 - 149 mg/dL [facility] OF PATHOLOGY AND GENOMIC MEDICINE HDL cholesterol 48 40 - 9,999 mg/dL [facility] OF PATHOLOGY AND GENOMIC MEDICINE LDL cholesterol 127 (H)Comment: Result 0 - 99 mg/dL [facility] obtained by direct LDL OF PATHOLOGY measurement AND GENOMIC MEDICINE Lipid panel See below [facility] interpretation Comment: OF PATHOLOGY Total Cholesterol AND GENOMIC (mg/dL) MEDICINE LDL Cholesterol (mg/dL) <200 Desirable <100 Optimal 200-239Borderline -[id number] 29Near or above optimal >=240High 130-159Borderline- high 160-189High >=190Very high HDL Cholesterol (mg/dL) Triglycerides (mg/dL) <40Low <150 Normal >=60 High 150-199Borderline- high 200-499High >=500Very high Risk Catergories that modify LDL goals. Risk Catergories LDL goal (mg/dL) CHD and CHD risk equivalent <100 (10-year risk >20%) Multiple (2+) risk factors <130 (10-year risk=<20%) 0-1 risk factors <160 (<10-year risk) Defining levels of lipids in metabolic syndrome Triglycerides >=150 mg/dL HDL Cholesterol Men <40 mg/dL Women <50 mg/dL Non-HDL cholesterol is a second target for therapy in persons with high triglycerides (>=200 mg/dL) Specimen Plasma specimen Performing Organization Address City/State/Zipcode Phone Number [facility] [place] [address] PATHOLOGY AND GENOMIC MEDICINE * CT Chest Wo Contrast (06/06/2018 3:00 PM CDT) Specimen Narrative Performed At Study:CT CHEST WO CONTRAST [facility] History: pulmonary nodules COMPARISON: None. TECHNIQUE: Multiple axial CT images of the chest performed Without IV contrast.. Coronal and sagittal reconstructions were done. CT imaging was performed with iterative reconstruction technique and/or automated exposure control to reduce radiation dose. FINDINGS: LUNGS: Subpleural thin bandlike scarring or atelectasis present in the dependent portions of the lower lobes. No consolidation, pleural effusion or pneumothorax. There is a 3 mm subpleural pulmonary nodule present in the left lower lobe in image 91 series 3. A pulmonary nodule in the periphery of the right middle lobe measures 3 mm in image 83. No pulmonary mass. AIRWAYS: No central endobronchial or endotracheal lesions are seen. MEDIASTINUM: The thoracic aorta is without aneurysm. The main pulmonary artery is not dilated. Heart is probably enlarged atherosclerosis of coronary arteries. No significant pericardial effusion is present. No enlarged mediastinal or hilar lymph nodes present. A small hiatal hernia is present. BONES AND OVERLYING SOFT TISSUES: The visualized bones are without destructive lesions. No enlarged axillary lymph nodes present. VISUALIZED LOWER NECK AND UPPER ABDOMEN: Lower neck unremarkable. Refer to CT abdomen done on same date for abdominal findings. IMPRESSION: No suspicious findings. Optional follow-up for the tiny pulmonary nodules with CT chest in 12 months. [id number] Procedure Note Hm Interface, Radiology Results Incoming - 06/06/2018 3:11 PM CDT Study:CT CHEST WO CONTRAST History: pulmonary nodules COMPARISON: None. TECHNIQUE: Multiple axial CT images of the chest performed Without IV contrast.. Coronal and sagittal reconstructions were done. CT imaging was performed with iterative reconstruction technique and/or automated exposure control to reduce radiation dose. FINDINGS: LUNGS: Subpleural thin bandlike scarring or atelectasis present in the dependent portions of the lower lobes. No consolidation, pleural effusion or pneumothorax. There is a 3 mm subpleural pulmonary nodule present in the left lower lobe in image 91 series 3. A pulmonary nodule in the periphery of the right middle lobe measures 3 mm in image 83. No pulmonary mass. AIRWAYS: No central endobronchial or endotracheal lesions are seen. MEDIASTINUM: The thoracic aorta is without aneurysm. The main pulmonary artery is not dilated. Heart is probably enlarged atherosclerosis of coronary arteries. No significant pericardial effusion is present. No enlarged mediastinal or hilar lymph nodes present. A small hiatal hernia is present. BONES AND OVERLYING SOFT TISSUES: The visualized bones are without destructive lesions. No enlarged axillary lymph nodes present. VISUALIZED LOWER NECK AND UPPER ABDOMEN: Lower neck unremarkable. Refer to CT abdomen done on same date for abdominal findings. IMPRESSION: No suspicious findings. Optional follow-up for the tiny pulmonary nodules with CT chest in 12 months. [id number] Performing Organization Address City/State/Zipcode Phone Number [facility] [address] [place] [address] after 03/21/2018 Insurance Type Payer Benefit Subscriber ID Effective Phone Address Plan / Dates Group PPO HUMANA MEDICARE HUMANA xxxxxxxxx [id number] MEDICARE resent PPO/PFFS/E [facility] Advance Directives Patient has advance care planning documents on file. For more information, ileana e contact: Norman Mayen [address] [place] [address]
--- NOTE | 2019-03-22 17:49 | Operative Report ---
DATE OF PROCEDURE: 03/22/2019 SURGEON: Reji Landry MD PROCEDURE: An EGD with biopsies and a colonoscopy with polypectomy. INDICATION FOR EGD: Dyspepsia, history of Grewal esophagus. INDICATIONS FOR COLONOSCOPY: Surveillance colonoscopy, personal history of colon polyps, rectal bleeding. MEDICATIONS: The patient was done under MAC. Please see anesthesiologist's note. PROCEDURE #1: With the patient in left lateral decubitus position, the flexible fiberoptic Olympus gastroscope was introduced into the esophagus under direct visualization without any difficulty. There was a tongue of Grewal's epithelium noted to extend proximally from the GE junction that was biopsied. The scope was then advanced with ease into the stomach traversing a moderate-sized hiatal hernia. Mucosa overlying the antrum and the body revealed some patchy erythema and low-grade edema and biopsies were obtained and sent to stain for H pylori. There was a minute nodule noted in the mid body anterior wall that was biopsied. The pylorus was intubated with gentle persistent pressure as it was slightly stenotic, but it opened up slightly with the repetitive intubation. The scope was advanced all the way to the second portion of the duodenum. Mucosa overlying the proximal second portion and duodenal bulb grossly appeared to be within normal limits. The scope was then withdrawn back into the stomach and retroflexed mucosa overlying the fundus and that of the cardia appeared to be within normal limits. The scope was then straightened out, it was subsequently withdrawn. The patient tolerated the procedure well. IMPRESSION: 1. Grewal esophagus, biopsied. 2. Moderate-sized hiatal hernia. 3. Gastritis, biopsied. Biopsies sent to stain for H pylori. 4. Minute nodule, midbody anterior wall, biopsied. PLAN: Follow up histology. Continue Nexium 40 mg one p.o. q.a.m. a.c. PROCEDURE #2: The patient was then turned around after adequate lubrication of the anal canal. A flexible fiberoptic Olympus colonoscope was inserted into the rectum with ease and advanced all the way to the cecum. The scope was then withdrawn slowly. Mucosa overlying the cecum appeared to be within normal limits. Three polyps were snared, one polyp was removed per cold biopsy forceps from the ascending colon. One polyp was snared from the transverse colon. One polyp was snared from the descending colon. Diverticular disease was noted to involve the sigmoid colon. One polyp was removed per cold snare from the sigmoid colon. The rectum appeared to be within normal limits. The scope was then retroflexed into the distal rectum. Large internal hemorrhoids were noted, none of which was actively bleeding. The scope was then straightened out, it was subsequently withdrawn. The patient tolerated procedure well. IMPRESSION: 1. Ascending colon polyps x4, 3 snared and 1 removed per the cold biopsy forceps. 2. Descending colon polyp snared. 3. Diverticulosis. 4. Sigmoid colon polyp, snared. 5. Large internal hemorrhoids without active bleeding. PLAN: Follow up histology. Initiate high-fiber, low-fat diet. Initiate high-fiber supplement. Start Anucort-HC suppositories b.i.d. x10 days and p.r.n. The patient might benefit from a followup colonoscopy in 3 years. A total of seven polyps were removed. Reji Landry MD [facility] /[id number] cc: Kavitha Mercedes MD
== END | disposition home or self-care (01) ==
LOC: OR 13:07
PROVIDERS: ATTEND Internal Medicine Gastroenterology
DX: K62.5 Hemorrhage of anus and rectum (principal); D12.2 Benign neoplasm of ascending colon; D12.3 Benign neoplasm of transverse colon; D12.4 Benign neoplasm of descending colon; D12.5 Benign neoplasm of sigmoid colon; K22.70 Barrett's esophagus without dysplasia; K29.70 Gastritis, unspecified, without bleeding; K21.0 Gastro-esophageal reflux disease with esophagitis; K44.9 Diaphragmatic hernia without obstruction or gangrene; K31.89 Other diseases of stomach and duodenum; K57.30 Diverticulosis of large intestine without perforation or abscess without bleeding; K64.8 Other hemorrhoids; Z72.0 Tobacco use; Z72.89 Other problems related to lifestyle; Z88.0 Allergy status to penicillin; Z01.810 Encounter for preprocedural cardiovascular examination; Z01.812 Encounter for preprocedural laboratory examination; Z79.82 Long term (current) use of aspirin
CPT/HCPCS: 36415; 43239; 45380; 45385; 85025; 88305; 88312; 93005; J2250; J2704; J3010

== ENCOUNTER → 2020-11-22 | Day surgery (SDC) | payer MEDICARE ==
[~2020-11-22] MED LIST changes: +FAMOTIDINE20 MG PO; +HYOSCYAMINE SULFATE 0.5 MG/ML INJ ONE; +LIDOCAINE HCL 2% LOCAL INJ 5 ML SDV VIAL INJ ONE; +OXYBUTYNIN CHLOR5 MG PO; +PROPOFOL IV EMULSION 10 MG/ML 20 ML VIAL ONE; -PROPOFOL IV EMULSION 10 MG/ML 50 ML VIAL ONE
== END | disposition home or self-care (01) ==
LOC: OR 13:08
PROVIDERS: ATTEND Internal Medicine Gastroenterology
DX: K21.00 Gastro-esophageal reflux disease with esophagitis, without bleeding (principal); K22.70 Barrett's esophagus without dysplasia; K29.50 Unspecified chronic gastritis without bleeding; D12.2 Benign neoplasm of ascending colon; D12.0 Benign neoplasm of cecum; K44.9 Diaphragmatic hernia without obstruction or gangrene; K31.7 Polyp of stomach and duodenum; Z86.010 Personal history of colon polyps; Z88.0 Allergy status to penicillin; R03.0 Elevated blood-pressure reading, without diagnosis of hypertension; Z01.812 Encounter for preprocedural laboratory examination; Z20.822 Contact with and (suspected) exposure to COVID-19
CPT/HCPCS: 36415; 43239; 45380; 45385; 85025; 88305; 88312; 93005; J1980; J2001; J2250; J3010; U0002

== ENCOUNTER → 2021-04-20 | Day surgery (SDC) | payer MEDICARE ==
[2021-04-12 08:25] LABS: BASOPHILS # (AUTO) 0.1 (0.0-0.1); BASOPHILS % 1.4 % (0.0-1.0); EOSINOPHILS # (AUTO) 0.1 (0.0-0.4); EOSINOPHILS % 1.4 % (0.0-6.0); HEMATOCRIT 43.8 % (38.2-49.6); LYMPHOCYTES # (AUTO) 2.7 (1.0-3.2); LYMPHOCYTES % 41.6 % (18.0-39.1); MEAN CORPUSCULAR HEMOGLOBIN 29.1 pg (28-32); MEAN CORPUSCULAR VOLUME 91.1 fL (81-99); MONOCYTES # (AUTO) 0.5 (0.2-0.8); MONOCYTES % 7.9 % (4.4-11.3); NEUTROPHILS # (AUTO) 3.1 (2.1-6.9); NEUTROPHILS % 47.4 % (38.7-80.0); PLATELET COUNT 264 x10e3/uL (140-360); RED BLOOD COUNT 4.81 x10e6/uL (4.3-5.7); RED CELL DISTRIBUTION WIDTH 13.2 % (11.7-14.4)
[~2021-04-20] MED LIST changes: +ATORVASTATIN CA20 MG PO; +CLOPIDOGREL75 MG PO; -FENTANYL CITRATE/PF 100MCG/2 ML INJ ONE; -HYOSCYAMINE SULFATE 0.5 MG/ML INJ ONE; -PROPOFOL IV EMULSION 10 MG/ML 20 ML VIAL ONE
[2021-04-20 08:20] VITALS: BP 110/69
== END | disposition home or self-care (01) ==
LOC: OR 06:02
PROVIDERS: ATTEND Internal Medicine Gastroenterology
DX: K22.2 Esophageal obstruction (principal); K22.70 Barrett's esophagus without dysplasia; K20.90 Esophagitis, unspecified without bleeding; K29.70 Gastritis, unspecified, without bleeding; K44.9 Diaphragmatic hernia without obstruction or gangrene; K26.9 Duodenal ulcer, unspecified as acute or chronic, without hemorrhage or perforation; K57.90 Diverticulosis of intestine, part unspecified, without perforation or abscess without bleeding; K21.9 Gastro-esophageal reflux disease without esophagitis; I25.10 Atherosclerotic heart disease of native coronary artery without angina pectoris; Z72.0 Tobacco use; Z68.26 Body mass index [BMI] 26.0-26.9, adult; R68.89 Other general symptoms and signs; Z86.010 Personal history of colon polyps; Z88.0 Allergy status to penicillin; Z01.810 Encounter for preprocedural cardiovascular examination; Z01.812 Encounter for preprocedural laboratory examination
CPT/HCPCS: 36415; 43235; 43450; 85025; 93005; J2001; J2250